=== PATIENT | female | born 1995 | race Two or more races ===

== ENCOUNTER 2023-07-07 13:45 | Inpatient (IN) | payer OTHER ==
[~2023-07-07] VITALS: Ht 172.7 cm; Wt 4.1 kg
[2023-07-20] MEDS ORDERED: PRENATAL TABLE1 EAC4 PO (06:18)
[2023-07-20] MEDS ORDERED: FLOVENT DISKU100 MCG IH (06:18)
[2023-07-20] MEDS ORDERED: ZYRTEC10 M3 PO (06:18)
== END 2023-07-22 16:27 | disposition home or self-care (01) | DRG 788 ==
LOC: LDR 07-18 13:45 → O/R 07-20 20:23 → OB/GYN 07-20 22:16
PROVIDERS: ADMIT Obstetrics & Gynecology; ATTEND Obstetrics & Gynecology
PROC: 4A1HXCZ Monitoring of Products of Conception, Cardiac Rate, External Approach (ICD-10-PCS; 2023-07-20)
PROC: 10D00Z1 Extraction of Products of Conception, Low, Open Approach (ICD-10-PCS; principal; 2023-07-20 20:00)
DX: O33.5XX0 Maternal care for disproportion due to unusually large fetus, not applicable or unspecified (principal); O36.63X0 Maternal care for excessive fetal growth, third trimester, not applicable or unspecified; Z3A.40 40 weeks gestation of pregnancy; Z37.0 Single live birth; Z20.822 Contact with and (suspected) exposure to COVID-19

== ENCOUNTER 2023-07-14 12:20 | Outpatient (CLI) | payer OTHER | END 2023-07-14 13:05 | disposition home or self-care (01) | LOC: NST 12:20 | PROVIDERS: ATTEND Obstetrics & Gynecology | DX: Z34.83 Encounter for supervision of other normal pregnancy, third trimester (principal) ==